=== PATIENT | male | born 1965 ===

== ENCOUNTER 2025-02-14 11:44 | Day surgery (SDC) | payer OTHER ==
[~2025-02-14] VITALS: Ht 172.7 cm; Wt 135.3 kg
[~2025-02-14 11:44] MED LIST: ACET500 PO; ATOR20 PO; Aspir 8181 MG PO; CEPH500 PO; CLOBETTC TOP; CLOP75 PO; GABA300 PO; HYDACE10B PO; IBUP800 PO; METO25 PO; MULTI-VITAMIN1 EAC2 PO; OMEP20ER PO; Omeprazole20 M1 PO; PANT40 PO; PRED20 PO; Prinivil10 MG PO; Prozac20 MG PO; TRIHYD253A PO; ZESTORETIC 20-251 EA PO
[2025-02-14 12:20] VITALS: BP 187/86
--- NOTE | 2025-02-14 12:20 | NUR ---
Ambulatory in Day Surgery. History, Chart, Medications and Allergies reviewed before start of procedure. Patient confirms NPO status and agrees with scheduled surgery. Pre-Op teaching done. Pt verbalizes understanding. Patient States Post-Procedure ride home has been arranged.
--- NOTE | 2025-02-14 13:29 | NUR ---
02/14/25 1329 Pina Sultana History, Chart, Medications and Allergies reviewed before start of procedure. MONITOR INTACT WITH CONTINUOUS PULSE OXIMETRY, CONTINUOUS END TITAL CO2, 3-LEAD EKG AND INTERMITTENT BLOOD PRESSURE. O2 VIA POM INTACT THROUGHOUT SEDATION/PROCEDURE. MAC PROVIDED BY DR. GRANADOS.
[2025-02-14 13:54] VITALS: BP 141/79
--- NOTE | 2025-02-14 14:12 | NUR ---
Discharge instructions reviewed with patient. Patient verbalizes understanding. Copy given to patient to take home. Patient States Post-Procedure ride home has been arranged. Discharged via wheelchair to private car for ride home.
== END 2025-02-14 14:13 | disposition home or self-care (01) ==
LOC: ORSCMMR 11:44 → ORD 13:00 → ORSCMMR 14:13
PROVIDERS: Surgery
PROC: 0DBP8ZX Excision of Rectum, Via Natural or Artificial Opening Endoscopic, Diagnostic (ICD-10-PCS; principal; 2025-02-14 13:00)
PROC: 0DBH8ZX Excision of Cecum, Via Natural or Artificial Opening Endoscopic, Diagnostic (ICD-10-PCS; principal; 2025-02-14 13:00)
PROC: 0DBM8ZX Excision of Descending Colon, Via Natural or Artificial Opening Endoscopic, Diagnostic (ICD-10-PCS; principal; 2025-02-14 13:00)
DX: Z12.11 Encounter for screening for malignant neoplasm of colon (principal); D12.0 Benign neoplasm of cecum; D12.4 Benign neoplasm of descending colon; D12.8 Benign neoplasm of rectum; I10 Essential (primary) hypertension; I25.2 Old myocardial infarction; I25.10 Atherosclerotic heart disease of native coronary artery without angina pectoris; G47.33 Obstructive sleep apnea (adult) (pediatric); Z87.891 Personal history of nicotine dependence; F41.9 Anxiety disorder, unspecified; R73.03 Prediabetes; E66.01 Morbid (severe) obesity due to excess calories; Z68.42 Body mass index [BMI] 45.0-49.9, adult; F32.A Depression, unspecified; Z79.899 Other long term (current) drug therapy; Z79.82 Long term (current) use of aspirin
CPT/HCPCS: 88305; J2704; J7120